=== PATIENT | female | born 1995 | race Caucasian/White ===

== ENCOUNTER 2023-01-13 15:48 | Emergency (ER) | payer OTHER ==
[~2023-01-13] VITALS: Ht 172.7 cm; Wt 129.9 kg
[2023-01-13] MEDS ORDERED: BACL10TA2 PO (16:09)
[2023-01-13] MEDS ORDERED: ELIQ5TAB PO (16:09)
[2023-01-13] MEDS ORDERED: IMIT50TA PO (16:09)
[2023-01-13] MEDS ORDERED: CYMB60CA4 PO (16:09)
[2023-01-13] MEDS ORDERED: CYMB1CAP5 PO (16:09)
[2023-01-13] MEDS ORDERED: TOPA50TA8 PO (16:09)
[2023-01-13 17:35] LABS: BASO # 0.1 10^3/uL (0.0-0.2); EOS # 0.2 10^3/uL (0.0-0.5); EOS % 2.5 % (0.0-3.0); HEMATOCRIT 41.2 % (36.0-47.0); HEMOGLOBIN 13.8 g/dl (12.0-15.5); LYMPH # 1.6 10^3/uL (1.5-5.0); LYMPH % 27.4 % (24.0-44.0); MEAN CORPUSCULAR HEMOGLOBIN 30.4 pg (27.0-33.0); MEAN CORPUSCULAR HGB CONC 33.5 g/dl (32.0-36.5); MEAN CORPUSCULAR VOLUME 90.7 fl (80.0-96.0); MONO # 0.4 10^3/uL (0.0-0.8); MONO % 7.4 % (2.0-8.0); NEUTROPHILS # 3.6 10^3/uL (1.5-8.5); NEUTROPHILS % 60.7 % (36.0-66.0); PLATELET COUNT, AUTOMATED 313 10^3/uL (150-450); RED BLOOD COUNT 4.54 10^6/uL (4.00-5.40); WHITE BLOOD COUNT 5.9 10^3/uL (4.0-10.0)
[2023-01-13 17:51] LABS: INR 0.88; PROTHROMBIN TIME 12.1 SECONDS (12.5-14.5)
[2023-01-13 17:54] LABS: D-DIMER QUANT 369.18 ng/ml (<500)
[2023-01-13 18:01] LABS: LIPASE 32 U/L (12-53)
[2023-01-13 18:03] LABS: ALKALINE PHOSPHATASE 81 U/L (46-116); ALT/SGPT 23 U/L (7.0-40); AST/SGOT 9 U/L (<34); BILIRUBIN,DIRECT < 0.1 MG/DL (<0.4); BILIRUBIN,TOTAL 0.4 MG/DL (0.3-1.2); BLOOD UREA NITROGEN 12 MG/DL (9-23); CALCIUM LEVEL 9.1 MG/DL (8.5-10.1); CARBON DIOXIDE LEVEL 22 MMOL/L (20-31); CHLORIDE LEVEL 107 MMOL/L (98-107); CK-MB VALUE MASS < 1.0 NG/ML (<3.6); CPK CREATINE PHOSPHOKINASE 90 U/L (34-145); CREATININE FOR GFR 0.72 MG/DL (0.55-1.30); GLOMERULAR FILTRATION RATE > 60.0 (>60); GLUCOSE, FASTING 83 MG/DL (60-100); MB/CK RELATIVE INDEX 1.11 (< OR =4); POTASSIUM SERUM 4.2 MMOL/L (3.5-5.1); SODIUM LEVEL 138 MMOL/L (136-145); TOTAL PROTEIN 6.7 G/DL (5.7-8.2)
[2023-01-13] MEDS ORDERED: ONDANSETRON 4MG 2ML VIAL IV ONE (18:15)
[2023-01-13] MEDS ORDERED: MORPHINE 2 MG/ML 1ML VIAL IV ONE (18:15)
[2023-01-13] MEDS ORDERED: ISOVUE-370 76% 100ML VIAL As Ordered ONE (18:18)
[2023-01-13] MEDS ORDERED: diphenhydrAMINE 50MG/ML VIAL IV STA (18:51)
[2023-01-13] MEDS ORDERED: FAMOTIDINE 20MG/2ML VIAL IVP ONE (18:55)
[2023-01-13 19:15] LABS: CK-MB VALUE MASS < 1.0 NG/ML (<3.6)
[2023-01-13 19:16] LABS: CPK CREATINE PHOSPHOKINASE 83 U/L (34-145)
[2023-01-13] MEDS ORDERED: MORPHINE 4 MG/ML 1ML VIAL IV ONE (19:50)
[2023-01-13] MEDS ORDERED: ANEXSIA, NORCO 7.5MG/325MG TABLET(HYDROCODONE/APAP) PO ONE (20:50)
[2023-01-13] MEDS ORDERED: HYDR-3713 PO (20:51)
[2023-01-13] MEDS ORDERED: NS 1,000 ML IV ONE (21:25)
[2023-01-13] MEDS ORDERED: KETOROLAC 30 MG/ML 1ML VIAL IV ONE (21:25)
[2023-01-13] MEDS ORDERED: MEDR4PAK PO (22:18)
[2023-01-13] MEDS ORDERED: methylPREDNISolone 125MG 2ML VIAL IV ONE (22:20)
[2023-01-13] MEDS ORDERED: NORCO 5/325MG TABLET (HOME DOSE PACK) PO ONE (22:25)
[2023-01-13 23:11] VITALS: BP 161/78; TEMP 97.4; O2SAT 97
== END 2023-01-13 23:14 | disposition home or self-care (01) ==
LOC: M ED 15:48
DX: R09.1 Pleurisy (principal); I73.00 Raynaud's syndrome without gangrene; R07.89 Other chest pain; Z86.711 Personal history of pulmonary embolism; Z87.891 Personal history of nicotine dependence; Z79.01 Long term (current) use of anticoagulants; Z79.899 Other long term (current) drug therapy; Z91.89 Other specified personal risk factors, not elsewhere classified
CPT/HCPCS: 71045; 71275; 74177; 80048; 80076; 82550; 82553; 83690; 84484; 85025; 85379; 85610; 93005; 93970; 96361; 96374; 96375; 96376; 99284; J1885; J2405; J2930; Q9967

== ENCOUNTER 2023-02-07 00:37 | Inpatient (IN) | payer OTHER ==
[~2023-02-07] VITALS: Ht 172.7 cm; Wt 125.0 kg
[~2023-02-07 00:37] MED LIST: BACL10TA2 PO; CYMB1CAP5 PO; CYMB60CA4 PO; ELIQ5TAB PO; HYDR-3713 PO; IMIT50TA PO; MEDR4PAK PO; TOPA50TA8 PO
[2023-02-07 01:35] LABS: HEMATOCRIT 41.3 % (36.0-47.0); HEMOGLOBIN 13.8 g/dl (12.0-15.5); MEAN CORPUSCULAR HEMOGLOBIN 29.9 pg (27.0-33.0); MEAN CORPUSCULAR HGB CONC 33.4 g/dl (32.0-36.5); MEAN CORPUSCULAR VOLUME 89.4 fl (80.0-96.0); PLATELET COUNT, AUTOMATED 303 10^3/uL (150-450); RED BLOOD COUNT 4.62 10^6/uL (4.00-5.40); WHITE BLOOD COUNT 6.9 10^3/uL (4.0-10.0)
[2023-02-07 01:53] LABS: ETHYL ALCOHOL (ETHANOL) 0.005 % (0.000-0.010)
[2023-02-07 01:54] LABS: ACETAMINOPHEN LEVEL < 2.0 UG/ML (10.0-20.0); ALBUMIN 4.4 G/DL (3.2-5.2); ALKALINE PHOSPHATASE 76 U/L (46-116); ALT/SGPT 22 U/L (7.0-40); AST/SGOT 11 U/L (<34); BILIRUBIN,DIRECT 0.1 MG/DL (<0.4); BILIRUBIN,TOTAL 0.4 MG/DL (0.3-1.2); BLOOD UREA NITROGEN 8 MG/DL (9-23); CALCIUM LEVEL 9.5 MG/DL (8.5-10.1); CARBON DIOXIDE LEVEL 22 MMOL/L (20-31); CHLORIDE LEVEL 106 MMOL/L (98-107); CREATININE FOR GFR 0.71 MG/DL (0.55-1.30); GLOMERULAR FILTRATION RATE > 60.0 (>60); GLUCOSE, FASTING 86 MG/DL (60-100); POTASSIUM SERUM 3.8 MMOL/L (3.5-5.1); SALICYLATE LEVEL < 3.0 MG/DL (<30); SODIUM LEVEL 138 MMOL/L (136-145)
[2023-02-07 01:57] LABS: THYROID STIMULATING HORMONE 0.487 uIU/ML (0.55-4.78)
[2023-02-07 02:13] LABS: AMPHETAMINES LEVEL URINE NEGATIVE (NEGATIVE); BARBITURATES URINE NEGATIVE (NEGATIVE); BENZODIAZEPINES URINE NEGATIVE (NEGATIVE); COCAINE METABOLITE URINE NEGATIVE (NEGATIVE); METHADONE URINE NEGATIVE (NEGATIVE); OPIATES URINE NEGATIVE (NEGATIVE); PHENCYCLIDINE URINE NEGATIVE (NEGATIVE)
[2023-02-07 02:14] LABS: CANNABINOIDS URINE POSITIVE (NEGATIVE)
[2023-02-07] MEDS ORDERED: ALPRAZolam 0.5 MG TAB PO ONE ×3 (04:50→20:05)
[2023-02-07] MEDS ORDERED: HYDR-4571 (10:46)
[2023-02-07] MEDS ORDERED: PANT40TA29 PO (10:46)
[2023-02-07] MEDS ORDERED: RIZA10TA2 PO (10:46)
[2023-02-07] MEDS ORDERED: PROM25TA22 PO (10:46)
[2023-02-07] MEDS ORDERED: BUSP5TA PO (10:46)
[2023-02-07] MEDS ORDERED: MED REC IN PROGRESS XX SCH (13:50)
[2023-02-07] MEDS ORDERED: LORA1TAB23 PO (14:18)
[2023-02-07] MEDS ORDERED: FLOM0.4C39 PO (14:18)
[2023-02-07] MEDS ORDERED: OCRE300I IV (14:18)
[2023-02-07] MEDS ORDERED: HOME MED LIST COMPLETE! XX SCH (14:25)
[2023-02-07] MEDS: busPIRone 5 MG TAB PO SCH ×2 (16:27→22:34)
[2023-02-07] MEDS: DULoxetine 30MG CAPSULE (CYMBALTA) PO SCH (22:33)
[2023-02-07] MEDS: BACLOFEN 10 MG TAB PO SCH (22:34)
[2023-02-07] MEDS: APIXABAN 5 MG TAB (ELIQUIS) PO SCH (22:34)
[2023-02-07] MEDS ORDERED: PANTOPRAZOLE 40MG TAB (PROTONIX) PO ONE (22:40)
[2023-02-07] MEDS ORDERED: PROMETHAZINE 25 MG TAB PO ONE (22:40)
[2023-02-07] MEDS ORDERED: diphenhydrAMINE 25MG CAP PO ONE (22:55)
[2023-02-08] MEDS ORDERED: ALPRAZolam 0.5 MG TAB PO ONE (05:15)
[2023-02-08] MEDS ORDERED: NICOTINE 21MG/24HR 1 EA TRANSDERMAL TD PRN (08:00)
[2023-02-08] MEDS ORDERED: MOM 30ML SUSPENSION UDC PO PRN (08:00)
[2023-02-08] MEDS ORDERED: MAALOX 30 ML SUSP *UDC PO PRN (08:00)
[2023-02-08] MEDS ORDERED: diphenhydrAMINE 25MG CAP PO ONE (09:00)
[2023-02-08] MEDS ORDERED: PANTOPRAZOLE 40MG TAB (PROTONIX) PO SCH (09:00)
[2023-02-08] MEDS: APIXABAN 5 MG TAB (ELIQUIS) PO SCH ×2 (09:02→21:38)
[2023-02-08] MEDS: busPIRone 5 MG TAB PO SCH ×3 (09:02→21:38)
[2023-02-08] MEDS: DULoxetine 30MG CAPSULE (CYMBALTA) PO SCH ×2 (09:02→21:38)
[2023-02-08] MEDS: BACLOFEN 10 MG TAB PO SCH ×2 (09:02→21:39)
[2023-02-08 09:51] VITALS: BP 139/70; TEMP 97.4; O2SAT 98
[2023-02-08] MEDS ORDERED: SUMAtriptan SUCCINATE 25 MG TAB PO PRN (11:50)
[2023-02-08] MEDS ORDERED: NORCO, ANEXSIA 5/325MG TABLET (HYDROcodone/ACETAMINOPHEN) PO PRN (11:50)
[2023-02-08 12:25] LABS: CK-MB VALUE MASS < 1.0 NG/ML (<3.6)
[2023-02-08 12:31] LABS: CPK CREATINE PHOSPHOKINASE 88 U/L (34-145); MB/CK RELATIVE INDEX 1.13 (< OR =4)
[2023-02-08] MEDS: PROMETHAZINE 25 MG TAB PO SCH (16:43)
[2023-02-08] MEDS: PILL CUTTER 1 EACH XX PRN (16:44)
[2023-02-08 18:57] VITALS: BP 134/87; TEMP 97.9; O2SAT 95
[2023-02-08] MEDS: ACETAMINOPHEN TAB 650MG DOSE (2X325MG) PO PRN (21:39)
[2023-02-08] MEDS: traZODone 50 MG TAB PO PRN (21:39)
[2023-02-09 06:35] VITALS: BP 131/74; TEMP 98.8; O2SAT 99
[2023-02-09] MEDS ORDERED: TAMSULOSIN 0.4 MG CAP PO SCH (09:00)
[2023-02-09] MEDS: PROMETHAZINE 25 MG TAB PO SCH (09:31)
[2023-02-09] MEDS: BACLOFEN 10 MG TAB PO SCH ×2 (09:32→21:20)
[2023-02-09] MEDS: busPIRone 10 MG TAB PO SCH ×2 (09:32→21:20)
[2023-02-09] MEDS: DULoxetine 30MG CAPSULE (CYMBALTA) PO SCH ×2 (09:32→21:20)
[2023-02-09] MEDS: APIXABAN 5 MG TAB (ELIQUIS) PO SCH ×2 (09:32→21:20)
[2023-02-09] MEDS: PANTOPRAZOLE 40MG TAB (PROTONIX) PO SCH (09:32)
[2023-02-09] MEDS: PILL CUTTER 1 EACH XX PRN (09:32)
[2023-02-09] MEDS: LORazepam 1 MG TAB PO SCH (09:33)
[2023-02-09] MEDS: ACETAMINOPHEN TAB 650MG DOSE (2X325MG) PO PRN (13:29)
[2023-02-09 18:16] VITALS: BP 132/71; TEMP 97.9; O2SAT 97
[2023-02-09] MEDS: traZODone 50 MG TAB PO PRN (23:18)
[2023-02-10] MEDS: ACETAMINOPHEN TAB 650MG DOSE (2X325MG) PO PRN (00:35)
[2023-02-10 06:43] VITALS: BP 156/80; TEMP 96.6; O2SAT 96
[2023-02-10] MEDS: APIXABAN 5 MG TAB (ELIQUIS) PO SCH (07:29)
[2023-02-10] MEDS: busPIRone 10 MG TAB PO SCH (07:30)
[2023-02-10] MEDS: BACLOFEN 10 MG TAB PO SCH (07:31)
[2023-02-10] MEDS: DULoxetine 30MG CAPSULE (CYMBALTA) PO SCH (07:31)
[2023-02-10] MEDS: PANTOPRAZOLE 40MG TAB (PROTONIX) PO SCH (07:31)
[2023-02-10] MEDS: LORazepam 1 MG TAB PO SCH (07:32)
[2023-02-10] MEDS: PROMETHAZINE 25 MG TAB PO SCH (07:34)
[2023-02-10] MEDS: PILL CUTTER 1 EACH XX PRN (07:35)
[2023-02-10] MEDS ORDERED: LORA1TAB23 PO (11:40)
[2023-02-10] MEDS ORDERED: BUSP10TA PO (11:40)
[2023-02-10] MEDS ORDERED: CYMB60CA4 PO (11:40)
[2023-02-10] MEDS ORDERED: CYMB1CAP5 PO (11:40)
[2023-02-10] MEDS ORDERED: LORazepam 1 MG TAB PO ONE (13:20)
[2023-02-10 16:45] VITALS: BP 141/88; TEMP 98.6; O2SAT 100
== END 2023-02-10 17:14 | disposition home or self-care (01) | DRG 881 ==
LOC: M ED 00:37 → M ED INP 02-08 07:57 → M PSY 02-08 10:01
PROVIDERS: ADMIT Psychiatry & Neurology Psychiatry; ATTEND Student in an Organized Health Care Education/Training Program
DX: F32.A Depression, unspecified (principal); R45.851 Suicidal ideations; Z68.41 Body mass index [BMI] 40.0-44.9, adult; F41.9 Anxiety disorder, unspecified; F32.9 Major depressive disorder, single episode, unspecified; G35 Multiple sclerosis; Z79.899 Other long term (current) drug therapy; Z79.01 Long term (current) use of anticoagulants; G43.909 Migraine, unspecified, not intractable, without status migrainosus; Z86.711 Personal history of pulmonary embolism; E66.9 Obesity, unspecified; K21.9 Gastro-esophageal reflux disease without esophagitis

== ENCOUNTER 2023-02-16 13:00 | Emergency (ER) | payer OTHER ==
[~2023-02-16] VITALS: Ht 172.7 cm; Wt 124.9 kg
[~2023-02-16 13:00] MED LIST changes: +BUSP10TA PO; +BUSP5TA PO; +FLOM0.4C39 PO; +HYDR-4571; +LORA1TAB23 PO; +OCRE300I IV; +PANT40TA29 PO; +PROM25TA22 PO; +RIZA10TA2 PO
[2023-02-16] MEDS ORDERED: diazePAM 5MG TABLET PO ONE (21:20)
[2023-02-16] MEDS ORDERED: NORCO, ANEXSIA 5/325MG TABLET (HYDROcodone/ACETAMINOPHEN) PO ONE (21:20)
[2023-02-16] MEDS ORDERED: BACT800T5 PO (21:58)
[2023-02-16] MEDS ORDERED: BACTRIM 160MG/800MG DS TAB PO ONE (22:00)
[2023-02-16 22:09] VITALS: BP 137/91; TEMP 97.8; O2SAT 96
== END 2023-02-16 22:10 | disposition home or self-care (01) ==
LOC: M ED 13:00
DX: N39.0 Urinary tract infection, site not specified (principal); M79.661 Pain in right lower leg; I10 Essential (primary) hypertension; F12.10 Cannabis abuse, uncomplicated; G35 Multiple sclerosis; Z86.718 Personal history of other venous thrombosis and embolism; Z79.01 Long term (current) use of anticoagulants; Z91.048 Other nonmedicinal substance allergy status; Z87.891 Personal history of nicotine dependence; Z79.899 Other long term (current) drug therapy

== ENCOUNTER 2023-03-04 21:14 | Emergency (ER) | payer OTHER ==
[~2023-03-04] VITALS: Ht 172.7 cm; Wt 125.0 kg
[~2023-03-04 21:14] MED LIST changes: +BACT800T5 PO
[2023-03-04 21:15] VITALS: BP 140/85; TEMP 98.6; O2SAT 96
[2023-03-04] MEDS ORDERED: CYAN100049 (21:24)
[2023-03-04] MEDS ORDERED: ERGO500029 (21:24)
== END 2023-03-05 01:14 | disposition left against medical advice (07) ==
LOC: M ED 21:14
DX: Z53.21 Procedure and treatment not carried out due to patient leaving prior to being seen by health care provider (principal)

== ENCOUNTER 2023-03-20 22:09 | Emergency (ER) | payer OTHER ==
[~2023-03-20] VITALS: Ht 172.7 cm; Wt 122.7 kg
[~2023-03-20 22:09] MED LIST changes: +CYAN100049; +ERGO500029
[2023-03-20 22:10] VITALS: TEMP 98.6
[2023-03-20 23:06] LABS: BASO # 0.1 10^3/uL (0.0-0.2); BASO % 1.3 % (0.0-1.0); EOS # 0.2 10^3/uL (0.0-0.5); EOS % 2.1 % (0.0-3.0); HEMATOCRIT 39.3 % (36.0-47.0); HEMOGLOBIN 12.8 g/dl (12.0-15.5); LYMPH # 1.9 10^3/uL (1.5-5.0); LYMPH % 24.7 % (24.0-44.0); MEAN CORPUSCULAR HEMOGLOBIN 28.9 pg (27.0-33.0); MEAN CORPUSCULAR HGB CONC 32.6 g/dl (32.0-36.5); MEAN CORPUSCULAR VOLUME 88.7 fl (80.0-96.0); MONO # 0.7 10^3/uL (0.0-0.8); MONO % 9.5 % (2.0-8.0); NEUTROPHILS # 4.8 10^3/uL (1.5-8.5); NEUTROPHILS % 61.8 % (36.0-66.0); PLATELET COUNT, AUTOMATED 304 10^3/uL (150-450); RED BLOOD COUNT 4.43 10^6/uL (4.00-5.40); WHITE BLOOD COUNT 7.8 10^3/uL (4.0-10.0)
[2023-03-20 23:29] LABS: BLOOD UREA NITROGEN 10 MG/DL (9-23); CALCIUM LEVEL 9.8 MG/DL (8.5-10.1); CARBON DIOXIDE LEVEL 24 MMOL/L (20-31); CHLORIDE LEVEL 106 MMOL/L (98-107); CK-MB VALUE MASS < 1.0 NG/ML (<3.6); CREATININE FOR GFR 0.78 MG/DL (0.55-1.30); GLOMERULAR FILTRATION RATE > 60.0 (>60); GLUCOSE, FASTING 97 MG/DL (60-100); SODIUM LEVEL 139 MMOL/L (136-145)
[2023-03-20 23:34] LABS: CPK CREATINE PHOSPHOKINASE 88 U/L (34-145); MB/CK RELATIVE INDEX 1.13 (< OR =4)
[2023-03-21 01:46] LABS: CK-MB VALUE MASS < 1.0 NG/ML (<3.6)
[2023-03-21 01:48] LABS: CPK CREATINE PHOSPHOKINASE 84 U/L (34-145); MB/CK RELATIVE INDEX 1.19 (< OR =4)
[2023-03-21 02:26] LABS: HCG, SERUM QUALITATIVE NEGATIVE (NEGATIVE)
[2023-03-21] MEDS ORDERED: KETOROLAC 30 MG/ML 1ML VIAL IV ONE (03:00)
[2023-03-21] MEDS ORDERED: ONDANSETRON 4MG 2ML VIAL IV ONE (03:25)
[2023-03-21] MEDS ORDERED: ISOVUE-370 76% 100ML VIAL As Ordered ONE (03:33)
[2023-03-21 04:30] VITALS: BP 131/65; O2SAT 98
[2023-03-21] MEDS ORDERED: ELIQ5TAB PO (04:39)
== END 2023-03-21 04:50 | disposition home or self-care (01) ==
LOC: M ED 22:09
DX: R07.89 Other chest pain (principal); K21.9 Gastro-esophageal reflux disease without esophagitis; G43.909 Migraine, unspecified, not intractable, without status migrainosus; Z86.711 Personal history of pulmonary embolism; Z79.01 Long term (current) use of anticoagulants; Z79.899 Other long term (current) drug therapy; Z91.89 Other specified personal risk factors, not elsewhere classified
CPT/HCPCS: 36415; 71275; 80048; 82550; 82553; 84484; 84703; 85025; 85379; 93005; 96374; 96375; 99284; J1885; J2405; Q9967

== ENCOUNTER 2023-04-06 18:21 | Emergency (ER) | payer OTHER ==
[~2023-04-06] VITALS: Ht 172.7 cm; Wt 118.4 kg
[2023-04-06 20:14] LABS: BASO # 0.1 10^3/uL (0.0-0.2); BASO % 0.9 % (0.0-1.0); EOS # 0.1 10^3/uL (0.0-0.5); HEMATOCRIT 40.2 % (36.0-47.0); HEMOGLOBIN 13.2 g/dl (12.0-15.5); LYMPH # 1.5 10^3/uL (1.5-5.0); LYMPH % 18.7 % (24.0-44.0); MEAN CORPUSCULAR HEMOGLOBIN 28.6 pg (27.0-33.0); MEAN CORPUSCULAR HGB CONC 32.8 g/dl (32.0-36.5); MEAN CORPUSCULAR VOLUME 87.2 fl (80.0-96.0); MONO % 12.4 % (2.0-8.0); NEUTROPHILS # 5.4 10^3/uL (1.5-8.5); NEUTROPHILS % 65.9 % (36.0-66.0); PLATELET COUNT, AUTOMATED 299 10^3/uL (150-450); RED BLOOD COUNT 4.61 10^6/uL (4.00-5.40); WHITE BLOOD COUNT 8.2 10^3/uL (4.0-10.0)
[2023-04-06] MEDS ORDERED: METOCLOPRAMIDE INJ 10MG/2ML VIAL IV ONE (20:15)
[2023-04-06] MEDS ORDERED: NS 1,000 ML IV ONE ×2 (20:15)
[2023-04-06 20:43] LABS: CK-MB VALUE MASS < 1.0 NG/ML (<3.6)
[2023-04-06 20:44] LABS: ALBUMIN 4.5 G/DL (3.2-5.2); ALKALINE PHOSPHATASE 83 U/L (46-116); ALT/SGPT 23 U/L (7.0-40); AST/SGOT 11 U/L (<34); BILIRUBIN,DIRECT 0.1 MG/DL (<0.4); BILIRUBIN,TOTAL 0.4 MG/DL (0.3-1.2); BLOOD UREA NITROGEN 10 MG/DL (9-23); CALCIUM LEVEL 9.5 MG/DL (8.5-10.1); CARBON DIOXIDE LEVEL 22 MMOL/L (20-31); CHLORIDE LEVEL 106 MMOL/L (98-107); CREATININE FOR GFR 0.77 MG/DL (0.55-1.30); GLOMERULAR FILTRATION RATE > 60.0 (>60); GLUCOSE, FASTING 89 MG/DL (60-100); POTASSIUM SERUM 3.7 MMOL/L (3.5-5.1); SODIUM LEVEL 140 MMOL/L (136-145); TOTAL PROTEIN 7.1 G/DL (5.7-8.2)
[2023-04-06 20:48] LABS: CPK CREATINE PHOSPHOKINASE 74 U/L (34-145); MB/CK RELATIVE INDEX 1.35 (< OR =4)
[2023-04-06] MEDS ORDERED: ISOVUE-370 76% 100ML VIAL As Ordered ONE (21:03)
[2023-04-06 21:10] LABS: RSV AMPLIFICATION NEGATIVE (NEGATIVE)
[2023-04-06 23:28] VITALS: TEMP 96.1
[2023-04-07] MEDS ORDERED: PROMETHAZINE 25MG/ML 1ML VIAL IV ONE (00:05)
[2023-04-07 03:00] VITALS: O2SAT 98
[2023-04-07 03:04] VITALS: BP 119/56
[2023-04-07] MEDS ORDERED: ONDA4TAB6 PO (03:17)
[2023-04-07] MEDS ORDERED: PROM25TA22 PO (03:17)
[2023-04-08] MEDS ORDERED: ONDA4TAB6 PO (09:58)
[2023-04-08] MEDS ORDERED: PROM12.56 PO (09:58)
[2023-04-08] MEDS ORDERED: HALO1TAB19 PO (15:49)
== END 2023-04-07 03:34 | disposition home or self-care (01) ==
LOC: M ED 18:21
DX: R11.0 Nausea (principal); K21.9 Gastro-esophageal reflux disease without esophagitis; F32.A Depression, unspecified; G43.909 Migraine, unspecified, not intractable, without status migrainosus; Z91.048 Other nonmedicinal substance allergy status; Z79.899 Other long term (current) drug therapy
CPT/HCPCS: 71045; 74174; 80048; 80076; 82550; 82553; 84484; 85025; 87631; 93005; 96361; 96374; 96375; 99284; J2550; J2765; Q9967

== ENCOUNTER 2023-04-08 09:41 | Emergency (ER) | payer OTHER ==
[~2023-04-08] VITALS: Ht 172.7 cm; Wt 117.0 kg
[~2023-04-08 09:41] MED LIST changes: +ONDA4TAB6 PO
[2023-04-08] MEDS ORDERED: PROM12.56 PO (09:58)
[2023-04-08] MEDS ORDERED: ONDA4TAB6 PO (09:58)
[2023-04-08] MEDS ORDERED: NS 1,000 ML IV ONE (11:20)
[2023-04-08] MEDS ORDERED: ONDANSETRON 4MG 2ML VIAL IV ONE (11:40)
[2023-04-08 12:08] LABS: BASO # 0.1 10^3/uL (0.0-0.2); BASO % 1.2 % (0.0-1.0); EOS # 0.1 10^3/uL (0.0-0.5); HEMATOCRIT 41.5 % (36.0-47.0); HEMOGLOBIN 13.5 g/dl (12.0-15.5); LYMPH # 1.4 10^3/uL (1.5-5.0); LYMPH % 23.5 % (24.0-44.0); MEAN CORPUSCULAR HEMOGLOBIN 28.3 pg (27.0-33.0); MEAN CORPUSCULAR HGB CONC 32.5 g/dl (32.0-36.5); MONO # 0.6 10^3/uL (0.0-0.8); MONO % 9.4 % (2.0-8.0); NEUTROPHILS # 3.8 10^3/uL (1.5-8.5); NEUTROPHILS % 64.6 % (36.0-66.0); PLATELET COUNT, AUTOMATED 274 10^3/uL (150-450); RED BLOOD COUNT 4.77 10^6/uL (4.00-5.40); WHITE BLOOD COUNT 5.9 10^3/uL (4.0-10.0)
[2023-04-08 12:33] LABS: LIPASE 33 U/L (12-53)
[2023-04-08 12:35] LABS: ALBUMIN 4.5 G/DL (3.2-5.2); ALKALINE PHOSPHATASE 83 U/L (46-116); ALT/SGPT 29 U/L (7.0-40); AST/SGOT 14 U/L (<34); BILIRUBIN,DIRECT 0.1 MG/DL (<0.4); BILIRUBIN,TOTAL 0.5 MG/DL (0.3-1.2); BLOOD UREA NITROGEN 11 MG/DL (9-23); CALCIUM LEVEL 9.4 MG/DL (8.5-10.1); CARBON DIOXIDE LEVEL 20 MMOL/L (20-31); CHLORIDE LEVEL 106 MMOL/L (98-107); CREATININE FOR GFR 0.65 MG/DL (0.55-1.30); GLOMERULAR FILTRATION RATE > 60.0 (>60); GLUCOSE, FASTING 83 MG/DL (60-100); MAGNESIUM LEVEL 1.8 MG/DL (1.8-2.4); POTASSIUM SERUM 3.8 MMOL/L (3.5-5.1); SODIUM LEVEL 139 MMOL/L (136-145)
[2023-04-08 12:36] LABS: THYROID STIMULATING HORMONE 0.568 uIU/ML (0.55-4.78)
[2023-04-08 12:37] LABS: FREE T4 1.01 NG/DL (0.89-1.76)
[2023-04-08] MEDS ORDERED: HALOPERIDOL 5MG/ML 1ML VIAL IM ONE (15:00)
[2023-04-08] MEDS ORDERED: HALO1TAB19 PO (15:49)
[2023-04-08 16:05] VITALS: BP 116/67; TEMP 98.5; O2SAT 97
== END 2023-04-08 16:09 | disposition home or self-care (01) ==
LOC: M ED 09:41
DX: R11.2 Nausea with vomiting, unspecified (principal); R19.7 Diarrhea, unspecified; G35 Multiple sclerosis; K58.9 Irritable bowel syndrome, unspecified; F41.9 Anxiety disorder, unspecified; F32.A Depression, unspecified; F12.10 Cannabis abuse, uncomplicated; Z86.711 Personal history of pulmonary embolism; Z87.891 Personal history of nicotine dependence; Z91.048 Other nonmedicinal substance allergy status; Z79.899 Other long term (current) drug therapy
CPT/HCPCS: 80048; 80076; 83690; 83735; 84439; 84443; 85025; 87507; 96361; 96372; 96375; 99284; J1630; J2405

== ENCOUNTER 2023-06-01 09:49 | Day surgery (SDC) | payer OTHER ==
[~2023-06-01] VITALS: Ht 172.7 cm; Wt 114.4 kg
[~2023-06-01 09:49] MED LIST changes: +HALO1TAB19 PO; +INDO50CA91 PO; +NAPR-885 PO; +NS 1,000 ML IV ONE; +OMEP-173 PO; +PROM12.56 PO
[2023-06-01] MEDS ORDERED: LIDOCAINE 2% 100MG/5ML SDV (FOR ANES.) As Ordered ONE (11:56)
[2023-06-01] MEDS ORDERED: propofoL 200 MG/20 ML VIAL As Ordered ONE (11:56)
[2023-06-01 12:15] VITALS: TEMP 98.4
[2023-06-01 12:35] VITALS: BP 143/86; O2SAT 96
== END 2023-06-01 12:48 | disposition home or self-care (01) ==
LOC: M OPP 09:49
PROVIDERS: ATTEND Internal Medicine Gastroenterology
DX: K64.4 Residual hemorrhoidal skin tags (principal); K64.8 Other hemorrhoids; K63.89 Other specified diseases of intestine; K44.9 Diaphragmatic hernia without obstruction or gangrene; K29.70 Gastritis, unspecified, without bleeding; R12 Heartburn; Z79.1 Long term (current) use of non-steroidal anti-inflammatories (NSAID); Z79.83 Long term (current) use of bisphosphonates; Z79.899 Other long term (current) drug therapy; Z91.048 Other nonmedicinal substance allergy status

== ENCOUNTER → 2023-07-29 | Outpatient (REF) ==
[~2023-07-29] MED LIST changes: -NS 1,000 ML IV ONE
== END ==
LOC: M LAB 11:03
PROVIDERS: ATTEND Nurse Practitioner Adult Health
DX: Z11.52 Encounter for screening for COVID-19 (principal)

== ENCOUNTER 2023-08-17 09:37 | Outpatient (CLI) | payer OTHER ==
[~2023-08-17] VITALS: Ht 172.7 cm; Wt 111.3 kg
[~2023-08-17 09:37] MED LIST changes: +ALBUTEROL SULFATE 2.5MG/0.5ML INH NEB SOLN INH PRN; +EPINEPHrine INJ 1 MG/ML 1ML AMP IM PRN; +NS 1,000 ML IV SCH; +diphenhydrAMINE 50MG/ML VIAL IV PRN; +methylPREDNISolone 125MG 2ML VIAL IV PRN
[2023-08-17 10:00] VITALS: BP 117/59; O2SAT 95
[2023-08-17] MEDS ORDERED: diphenhydrAMINE 50MG/ML VIAL IV ONE (10:15)
[2023-08-17] MEDS ORDERED: OCRELIZUMAB 600 MG in NS 500 ML IV ONE (10:15)
[2023-08-17] MEDS ORDERED: ACETAMINOPHEN TAB 650MG DOSE (2X325MG) PO ONE (10:15)
[2023-08-17] MEDS ORDERED: methylPREDNISolone 125MG 2ML VIAL IV ONE (10:15)
[2023-08-17 11:30] VITALS: BP 128/71; O2SAT 100
[2023-08-17 12:30] VITALS: BP 115/62; O2SAT 100
[2023-08-17 13:30] VITALS: BP 105/52; O2SAT 99
[2023-08-17 15:15] VITALS: BP 128/68; O2SAT 99
== END 2023-08-17 15:15 | disposition home or self-care (01) ==
LOC: M INFU 09:37
PROVIDERS: ATTEND Physician Assistant
DX: G35 Multiple sclerosis (principal)
CPT/HCPCS: 96365; 96366; 96375; J1200; J2350; J2930

== ENCOUNTER → 2024-11-29 | Outpatient (CLI) | payer OTHER ==
[~2024-11-29] VITALS: Ht 172.7 cm; Wt 104.5 kg
[~2024-11-29] MED LIST changes: +ALBUTEROL SULFATE 2.5MG/0.5ML INH CONCENTRATE NEB SOLN INH PRN; -ALBUTEROL SULFATE 2.5MG/0.5ML INH NEB SOLN INH PRN; -FLOM0.4C39 PO; +NS (Normal Saline) 0.9% 1,000 ML IV SCH; -NS 1,000 ML IV SCH; +ONDA-282 PO; -ONDA4TAB6 PO; +TAMS-18 PO
[2024-11-29] MEDS: diphenhydrAMINE 50MG/ML VIAL IV ONE (09:55)
[2024-11-29] MEDS: methylPREDNISolone 125MG 2ML VIAL IV ONE (09:55)
[2024-11-29] MEDS: ACETAMINOPHEN 650 MG PO ONE (09:55)
[2024-11-29] MEDS: OCRELIZUMAB 600 MG in NS 500 ML IV ONE (10:24)
[2024-11-29 10:25] VITALS: BP 125/75; TEMP 98.6; O2SAT 97
[2024-11-29 11:00] VITALS: BP 112/59; TEMP 98; O2SAT 98
[2024-11-29 12:00] VITALS: BP 110/58; O2SAT 98
[2024-11-29 12:30] VITALS: BP 118/63; O2SAT 98
[2024-11-29 13:30] VITALS: BP 120/70; O2SAT 99
[2024-11-29 14:28] VITALS: BP 95/55; O2SAT 95
== END ==
LOC: M INFU 09:33
PROVIDERS: ATTEND Psychiatry & Neurology Neurology
DX: G35 Multiple sclerosis (principal)
CPT/HCPCS: 96365; 96366; 96375; J1200; J2350; J2919

== ENCOUNTER 2025-05-31 09:39 | Outpatient (CLI) | payer OTHER ==
[~2025-05-31] VITALS: Ht 172.7 cm; Wt 105.0 kg
[~2025-05-31 09:39] MED LIST changes: +ALBUTEROL SULFATE 2.5 MG/0.5 ML INH CONCENTRATE NEB SOLN INH PRN; -ALBUTEROL SULFATE 2.5MG/0.5ML INH CONCENTRATE NEB SOLN INH PRN; -NS (Normal Saline) 0.9% 1,000 ML IV SCH; +PROP20TA72 PO; +WELLTAB40 PO; +diphenhydrAMINE 50 MG/ML VIAL IV PRN; -diphenhydrAMINE 50MG/ML VIAL IV PRN; -methylPREDNISolone 125MG 2ML VIAL IV PRN
[2025-05-31 09:52] VITALS: BP 122/81; TEMP 97.5; O2SAT 100
[2025-05-31] MEDS: ACETAMINOPHEN 325 MG TAB PO ONE (10:00)
[2025-05-31] MEDS: OCRELIZUMAB 600 MG in NS 500 ML IV ONE (10:30)
[2025-05-31 11:00] VITALS: BP 105/66; O2SAT 98
[2025-05-31 11:30] VITALS: BP 110/69; O2SAT 99
[2025-05-31 12:00] VITALS: BP 115/61; O2SAT 96
[2025-05-31 12:30] VITALS: BP 119/70; O2SAT 99
[2025-05-31 14:27] VITALS: BP 112/62; O2SAT 98
== END 2025-05-31 14:40 | disposition home or self-care (01) ==
LOC: M INFU 09:39
PROVIDERS: ATTEND Psychiatry & Neurology Neurology
DX: G35.A Relapsing-remitting multiple sclerosis (principal); Z91.89 Other specified personal risk factors, not elsewhere classified
CPT/HCPCS: 96365; 96366; J2350; J2919